=== PATIENT | female | born 1995 | race Caucasian/White ===

== ENCOUNTER 2020-04-08 09:36 | Emergency (ER) | payer OTHER ==
[~2020-04-08] VITALS: Ht 175.3 cm; Wt 65.8 kg
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
--- NOTE | 2020-04-08 09:50 | NUR ---
SECURITY SECURITA CAME. PT WAS WANDED AND CHECKED.
[2020-04-08 10:12] LABS: BASOPHILS % (AUTO) 0.6 % (0.0-2.0); EOSINOPHILS % (AUTO) 1.3 % (0.0-6.0); HEMATOCRIT 40 % (33-45); HEMOGLOBIN 13.2 g/dL (11.5-14.8); LYMPHOCYTES # (AUTO) 1.5 /CMM (0.8-4.8); LYMPHOCYTES % (AUTO) 20.6 % (20.0-44.0); MEAN CORPUSCULAR HGB CONC 33 g/dl (31.0-36.0); MEAN CORPUSCULAR VOLUME 93 fL (82-100); MONOCYTES # (AUTO) 0.6 /CMM (0.1-1.30); MONOCYTES % (AUTO) 8.7 % (2.0-12.0); NEUTROPHILS # (AUTO) 5.1 /CMM (1.8-8.9); NEUTROPHILS % (AUTO) 68.8 % (43.0-81.0); PLATELET COUNT (AUTO) 316 /CMM (150-450); RED BLOOD CELL COUNT(AUTO) 4.25 MIL/uL (4.0-5.2); WHITE BLOOD COUNT (AUTO) 7.4 K/uL (4.3-11.0)
[2020-04-08 10:27] LABS: CALCIUM, SERUM 8.8 mg/dL (8.5-10.1); CARBON DIOXIDE 28 mmol/L (21-32); CHLORIDE 102 mmol/L (98-107); CREATININE 0.8 mg/dL (0.6-1.3); GLUCOSE 89 mg/dL (74-106); POTASSIUM 3.2 mmol/L (3.5-5.1); SODIUM SERUM 139 mmol/L (136-145); UREA NITROGEN, BLOOD 3 mg/dL (7-18)
--- NOTE | 2020-04-08 10:30 | NUR ---
SEEN BY ENAMELER
[2020-04-08 10:33] LABS: ALANINE AMINOTRANSFERASE 48 U/L (12-78); ALBUMIN 3.5 g/dL (3.4-5.0); ALCOHOL, BLOOD < 3 mg/dL (0-0); ALKALINE PHOSPHATASE 58 U/L (46-116); ASPARTATE AMINOTRANSFERASE 35 U/L (15-37); BILIRUBIN,DIRECT 0.2 mg/dL (0.0-0.2); BILIRUBIN,TOTAL 0.6 mg/dL (0.2-1.0); TOTAL PROTEIN, SERUM 8.2 g/dL (6.4-8.2)
[2020-04-08 10:34] LABS: ACETAMINOPHEN 0 ug/ml (10-30); SALICYLATE 0.6 mg/dL (2.8-20.0)
[2020-04-08 11:40] LABS: APPEARANCE,URINE Slightly Cloudy (CLEAR); BILIRUBIN,URINE Negative (NEGATIVE); BLOOD, URINE Large Ery/uL (NEGATIVE); COLOR,URINE Other (YELLOW); KETONES,URINE 15 (NEGATIVE); LEUKOCYTE ESTERASE ,URINE Negative (NEGATIVE); NITRITE, URINE Negative (NEGATIVE); PROTEIN,URINE Negative (NEGATIVE); UGLUCOSE Negative (NEGATIVE); UROBILINOGEN,URINE 0.2 EU/dL (0.2)
[2020-04-08 12:00] LABS: BACTERIA,URINE Few /HPF (None Seen); MUCUS,URINE Many /LPF (None Seen); SQUAMOUS EPITHELIAL CELL,UR Many /HPF (None Seen); URINE AMORPHOUS PHOSPHATES Few /HPF (None Seen)
--- NOTE | 2020-04-08 12:00 | NUR ---
LUNCH PT WAS GIVEN LUNCH. IN BED. CALM BUT HYPERVERBAL. PT NOW EATING LUNCH.
--- NOTE | 2020-04-08 13:10 | NUR ---
MÓNICA faxed clinicals to [facility]
--- NOTE | 2020-04-08 13:38 | NUR ---
12:30am Social Service consult requested as patient is wanting to enter voluntary psychiatric hospitalizations. Per MD note, 24-year-old female, patient is brought in by paramedics. Patient states she is suicidal and depressed. Patient not offering specific plan. Patient is a 24 year-old female. Patient alert and oriented x4. Patient confirmed demographics on face sheet including date of and social security number. Patient did not provide information regarding family contact. Per patient, currently living in a shared home in [facility]. Patient states that he is currently not working but per patient she receives $935 a month. Patient denies alcohol, drug, and cigarette use. Patient denies auditory and visual hallucinations. Patient reports a diagnosis of bipolar. Per patient, she states current suicidal ideation to run in front of a train. Patient denies homicidal ideation. Patient expressed wanting voluntary psychiatric treatment. This SW to fax clinicals over to [facility] intake . remains available for all needs regarding this patient
--- NOTE | 2020-04-08 16:02 | NUR ---
This SW received a call from Neida from [facility]. Patient has been accepted to [facility] under the care of Dr. John. Call Tony for report.
--- NOTE | 2020-04-08 16:10 | NUR ---
[facility] TO [facility]. CALLED FOR REPORT HOWEVER, THEY SAID THEY WILL BE CALLING US BACK.
--- NOTE | 2020-04-08 16:10 | NUR ---
CALLED [facility] FOR TRANSPORT TO [facility]. ETA [id number]. TRIP NUMBER [id number].
--- NOTE | 2020-04-08 16:14 | NUR ---
report given to Carrie ROBERTSON for meera
--- NOTE | 2020-04-08 17:40 | NUR ---
D/C Patient discharged to home in stable condition. Written and verbal after care instructions given. Patient verbalizes understanding of instruction. pt will be dcd to [facility] for psych eval. picked up by 2 drivematic machine operator
[2020-04-08 17:41] VITALS: BP 114/69
== END 2020-04-08 17:40 ==
LOC: ER 09:46
DX: R45.851 Suicidal ideations (principal); Z60.2 Problems related to living alone
CPT/HCPCS: 36415; 80048; 80076; 80305; 80307; 80329; 81001; 84703; 85025; 87086; 93005; 99285; G0480; 81000-TC

== ENCOUNTER 2020-04-08 21:24 | Emergency (ER) | payer OTHER ==
[~2020-04-08] VITALS: Ht 175.3 cm; Wt 65.8 kg
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
--- NOTE | 2020-04-08 23:09 | NUR ---
PT RESTING COMFORTABLY IN BED. PROVIDED WITH FOOD AND JUICE PER REQUEST. VITAL SIGNS STABLE. NO ACUTE DISTRESS NOTED AT THIS TIME. WILL CONTINUE TO MONITOR
--- NOTE | 2020-04-09 04:19 | NUR ---
PT DENIES SI/HI AT THIS TIME. PER DR. FENTON PT MEDICALLY CLEARED FOR DISCHARGE. Patient discharged to home in stable condition. Written and verbal after care instructions given. Patient verbalizes understanding of instruction.Pt ambulatory with a steady gait. Pt states she is not homeless.
[2020-04-09 04:21] VITALS: BP 124/79
== END 2020-04-09 04:21 | disposition home or self-care (01) ==
LOC: ER 21:29
DX: F41.9 Anxiety disorder, unspecified (principal); B35.9 Dermatophytosis, unspecified; Z60.2 Problems related to living alone

== ENCOUNTER 2021-05-06 02:31 | Emergency (ER) | payer MEDICARE, OTHER ==
[~2021-05-06] VITALS: Ht 188 cm; Wt 65.8 kg
--- NOTE | 2021-05-06 02:54 | NUR ---
Urine collected and sent to the lab.
--- NOTE | 2021-05-06 02:55 | NUR ---
PT AAOX4. BIBRA C/O SI WITH NO PLAN. -HI. REQUESTING VOLUNTARY PSYCHIATRIC PLACEMENT INTO [facility]. PLACED IN GOWN, ON MONITOR, AND PULSE OX. IN BED 13, SITTER AT BEDSIDE. AWAITING ER MD FOR EVAL.
[2021-05-06 03:21] LABS: BASOPHILS % (AUTO) 0.7 % (0.0-2.0); EOSINOPHILS % (AUTO) 2.4 % (0.0-6.0); HEMATOCRIT 39 % (33-45); HEMOGLOBIN 12.9 g/dL (11.5-14.8); LYMPHOCYTES # (AUTO) 1.2 K/uL (0.8-4.8); MEAN CORPUSCULAR HGB CONC 33 g/dl (31.0-36.0); MEAN CORPUSCULAR VOLUME 94 fL (82-100); MONOCYTES # (AUTO) 0.5 K/uL (0.1-1.30); MONOCYTES % (AUTO) 6.7 % (2.0-12.0); NEUTROPHILS % (AUTO) 72.2 % (43.0-81.0); PLATELET COUNT (AUTO) 267 K/uL (150-450); RED BLOOD CELL COUNT(AUTO) 4.12 MIL/uL (4.0-5.2); WHITE BLOOD COUNT (AUTO) 6.9 K/uL (4.3-11.0)
[2021-05-06 03:37] LABS: BILIRUBIN,URINE NEGATIVE (NEGATIVE); COLOR,URINE YELLOW (YELLOW); LEUKOCYTE ESTERASE ,URINE NEGATIVE (NEGATIVE); NITRITE, URINE NEGATIVE (NEGATIVE); PROTEIN,URINE NEGATIVE (NEGATIVE); UGLUCOSE NEGATIVE (NEGATIVE); UROBILINOGEN,URINE 0.2 EU/dL (0.2)
[2021-05-06 03:46] LABS: CALCIUM, SERUM 8.6 mg/dL (8.5-10.1); CARBON DIOXIDE 26 mmol/L (21-32); CHLORIDE 106 mmol/L (98-107); CREATININE 0.8 mg/dL (0.6-1.3); GLUCOSE 95 mg/dL (74-106); SODIUM SERUM 141 mmol/L (136-145); UREA NITROGEN, BLOOD 11 mg/dL (7-18)
[2021-05-06 03:50] LABS: ALANINE AMINOTRANSFERASE 35 U/L (12-78); ALBUMIN 3.8 g/dL (3.4-5.0); ALKALINE PHOSPHATASE 60 U/L (46-116); ASPARTATE AMINOTRANSFERASE 20 U/L (15-37); BILIRUBIN,DIRECT 0.1 mg/dL (0.0-0.2); BILIRUBIN,TOTAL 0.3 mg/dL (0.2-1.0); TOTAL PROTEIN, SERUM 7.6 g/dL (6.4-8.2)
[2021-05-06 03:51] LABS: ACETAMINOPHEN 0 ug/ml (10-30); ALCOHOL, BLOOD < 3 mg/dL (0-0)
--- NOTE | 2021-05-06 04:26 | NUR ---
FACESHEET AND CLINICALS FAXED TO [facility].
--- NOTE | 2021-05-06 08:02 | NUR ---
THE PATIENT IS RECEIVED IN ER BED # 13. ALERT AND ORIENTED X4. DENIES PAIN. IN ROOM AIR AND DENIES SOB. RESPIRATION REGULAR AND UNLABORED. WILL CONTINUE TO MONITOR THE PATIENT.
[2021-05-06 10:05] VITALS: BP 125/60
--- NOTE | 2021-05-06 10:06 | NUR ---
[facility] ETA 45 MINS FOR TRANSPORT TO [facility].
--- NOTE | 2021-05-06 10:15 | NUR ---
REPORT GIVEN TO REBECCA AT UNIT II. AWAITING TRANSPORT AMBULANCE.
--- NOTE | 2021-05-06 10:57 | NUR ---
REPORT GIVEN AMBULANCE STAFF
== END 2021-05-06 11:14 ==
LOC: ER 02:41
DX: R45.851 Suicidal ideations (principal); Z20.822 Contact with and (suspected) exposure to COVID-19
CPT/HCPCS: 36415; 80048-TC; 80076-TC; 84703-TC; 85025-TC; C9803; G0480